=== PATIENT | female | born 1970 | race African-American/Black ===

== ENCOUNTER 2022-07-02 00:25 | Emergency (ER) | payer MEDICAID, OTHER ==
[~2022-07-02] VITALS: Ht 170.2 cm; Wt 76.0 kg
[~2022-07-02 00:25] MED LIST: AMOX125S12 PO
[2022-07-02 00:36] VITALS: BP 141/91
[2022-07-02] MEDS ORDERED: KETOROLAC 15MG/ML VIAL IM ONE (02:15)
== END 2022-07-02 02:42 | disposition left against medical advice (07) ==
LOC: ER 00:25
DX: Z53.21 Procedure and treatment not carried out due to patient leaving prior to being seen by health care provider (principal)

== ENCOUNTER 2024-08-12 04:18 | Emergency (ER) | payer OTHER ==
[~2024-08-12] VITALS: Ht 170.2 cm; Wt 76.0 kg
[2024-08-12 04:23] VITALS: O2SAT 100
[2024-08-12 07:10] LABS: BASOPHILS % 0.6 % (0.0-2.0); HEMATOCRIT. 45.7 % (36.0-48.0); HEMOGLOBIN. 15.2 g/dL (12.0-16.0); LYMPHOCYTES % 20.1 % (20.0-50.0); MEAN CORPUSCULAR HEMOGLOBIN 28.5 pg (28.0-32.0); MEAN CORPUSCULAR HGB CONC 33.3 g/dL (31.0-37.0); MEAN CORPUSCULAR VOLUME 85.6 fL (81.0-99.0); NEUTROPHILS % 71.3 % (40.0-76.0); PLATELET 280 x1000/uL (130-400); RED BLOOD CELL COUNT 5.34 mill/uL (4.2-5.4); RED CELL DISTRIBUTION WIDTH 14.1 % (11.6-14.6); WHITE BLOOD COUNT 7.2 x1000/uL (4.5-11.0)
[2024-08-12 07:25] LABS: CHLORIDE 107 mEq/L (98-107); POTASSIUM 4.3 mEq/L (3.5-5.1); SODIUM 140 mEq/L (136-145)
[2024-08-12 07:26] LABS: CARBON DIOXIDE 30 mEq/L (21-32)
[2024-08-12 07:27] LABS: CALCIUM 9.6 mg/dL (8.7-10.4)
[2024-08-12 07:31] LABS: CREATININE 0.8 mg/dL (0.6-1.0); GLUCOSE 105 mg/dL (70-105)
[2024-08-12 07:32] LABS: UREA NITROGEN BLOOD 14 mg/dL (9-23)
[2024-08-12 07:34] LABS: HCG SCREEN NEGATIVE
[2024-08-12 07:45] LABS: TROPONIN I HIGH SENSITIVITY < 4 ng/L (3.0-34)
[2024-08-12] MEDS ORDERED: AMOX1TAB16 MT (08:37)
[2024-08-12] MEDS: KETOROLAC 30MG/ML VIAL IM ONE (08:40)
[2024-08-12 08:44] VITALS: BP 130/77; PULSE 70; RESP 16; TEMP 36.72516; O2SAT 100
== END 2024-08-12 09:34 | disposition home or self-care (01) ==
LOC: ER 04:18
DX: K08.89 Other specified disorders of teeth and supporting structures (principal); F12.90 Cannabis use, unspecified, uncomplicated; I10 Essential (primary) hypertension
CPT/HCPCS: 80048; 84703; 85025; 84484; 36415; 71045; 70450; 93005; 96372; 99285; J1885; Z7610